=== PATIENT | female | born 1960 | race Caucasian/White ===

== ENCOUNTER → 2018-04-23 | Outpatient (CLI) | payer OTHER ==
--- NOTE | 2018-04-23 09:58 | PCVCIMAG ---
APPROVED REPORT Study performed: 04/23/2018 07:49:21 EXAM: Comprehensive 2D, Doppler, and color-flow Echocardiogram Patient Location: Echo lab Status: routine BSA: 1.93 HR: 68 bpmBP: 136/84 mmHg Rhythm: NSR Other Information Study Quality: Adequate Risk Factors: Cardiac Risk Factors: HTN Indications Dyspnea Palpitations PSVT 2D Dimensions IVSd: 10.46 (7-11mm) LVDd: 41.17 mm PWd: 9.94 (7-11mm)Ascending Ao: 31.97 (22-36mm) LVDs: 27.75 (25-40mm) Left Atrium: 35.57 (27-40mm) Aortic Root: 32.68 mm LV Single Plane 4CH: 55.18 % LV Single Plane 2CH: 59.98 % Biplane EF: 57.9 % Volumes Left Atrial Volume (Systole) Single Plane 4CH: 88.76 mLSingle Plane 2CH: 46.82 mL LA ESV Index: 36.00 mL/m2 Aortic Valve AoV Peak Yung.: 1.30 m/s AO Peak Gr.: 6.76 mmHgLVOT Max P.55 mmHg LVOT Max V: 1.07 m/s Mitral Valve E/A Ratio: 0.6 MV Decel. Time: 332.58 ms MV E Max Yung.: 0.49 m/s MV A Yung.: 0.83 m/s IVRT: 128.03 ms Pulmonary Valve PV Peak Yung.: 0.84 m/sPV Peak Gr.: 2.84 mmHg Pulmonary Vein P Vein S: 0.23 m/sP Vein A: 0.43 m/s P Vein D: 0.37 m/sP Vein A Dur.: 110.7 msec P Vein S/D Ratio: 0.62 Tricuspid Valve TR Peak Yung.: 2.12 m/s TR Peak Gr.: 17.92 mmHg Left Ventricle The left ventricle is normal size. There is normal LV segmental wall motion. There is normal left ventricular wall thickness. Left ventricular systolic function is normal. The left ventricular ejection fraction is within the normal range. LVEF is 55-60%. Grade I - abnormal relaxation pattern. Right Ventricle The right ventricle is normal size. The right ventricular systolic function is normal. Atria Left atrium is mildly dilated. The right atrium size is normal. Aortic Valve The aortic valve is normal in structure. No aortic regurgitation is present. There is no aortic valvular stenosis. Mitral Valve The mitral valve is normal in structure. There is no mitral valve regurgitation noted. No evidence of mitral valve stenosis. Tricuspid Valve The tricuspid valve is normal in structure. Trace tricuspid regurgitation with PAP of 25 mmHg. Pulmonic Valve The pulmonary valve is normal in structure. There is no pulmonic valvular regurgitation. Great Vessels The aortic root is normal in size. IVC is normal in size and collapses >50% with inspiration. Pericardium There is no pericardial effusion. There is no pleural effusion. <Conclusion> The left ventricle is normal size. There is normal left ventricular wall thickness. Left ventricular systolic function is normal. Grade I - abnormal relaxation pattern. The right ventricle is normal size. Left atrium is mildly dilated. The right atrium size is normal. The aortic valve is normal in structure. The mitral valve is normal in structure. Trace tricuspid regurgitation with PAP of 25 mmHg.
== END | disposition home or self-care (01) ==
LOC: PCVCIMAG 08:26
PROVIDERS: ATTEND Internal Medicine Cardiovascular Disease
DX: R00.2 Palpitations (principal); I47.1 Supraventricular tachycardia; R06.09 Other forms of dyspnea; I10 Essential (primary) hypertension
CPT/HCPCS: 93306

== ENCOUNTER → 2018-06-20 | Outpatient (CLI) | payer OTHER ==
--- NOTE | 2018-06-21 15:14 | PCVCIMAG ---
APPROVED REPORT Study performed: 06/20/2018 13:56:45 Exam: Stress Echocardiogram Indication: Palpitations , Dyspnea Patient Location: Echo lab Stress Nurse: Kassy Ross RN Room #: 2 Status: routine Ht: 5 ft 6 in HR: 88 bpm BP: 104/64 mmHg Rhythm: NSR Medical History Medical History: HTN, SVT, CVA Cardiac Risk Factors: HTN Previous Cardiac Procedures: none Pretest Chest Pain Characteristics: No chest pain Exercise History: Physically active Procedure The patient underwent an Exercise Stress Test using the Nadia Protocol. Blood pressure, heart rate, and EKG were monitored. An Echocardiogram was performed by diesel automotive technician in four stages in quad fashion. At peak stress, four selected images were obtained and placed side by side with resting images for comparison. Stress Test Details Stress Test: Exercise stress testing was performed using a Nadia protocol. HR Resting HR: 88 bpmMax Heart Rate (APMHR): 164 bpm Max HR Achieved: 171 bpmTarget HR (85% APMHR): 139 bpm % of APMHR: 104 Recovery HR: 108 bpm HR response to stress: Normal HR response to stress BP Resting BP: 104/64 mmHg Max BP: 160/74 mmHg Recovery BP: 132/72 mmHg BP response to stress: Normal blood pressure response to stress. ECG Resting ECG: Sinus Rhythm Stress ECG: Sinus Rhythm ST Change: Non-ischemic Arrhythmia: Rare PVcs Recovery ECG: Sinus Rhythm Recovery ST Change: Non-ischemic Recovery Arrhythmia: None Clinical Reason for Termination: Maximal effort Stress Symptoms: none Exercise duration: 10 min 14 sec Highest Stage Achieved: Stage 4: 4.2 mph at 16% grade. Exercise capacity: 13.4 METs Overall Exercise Capacity for Age: Good Angina Score: None No complications. Stress ECG Conclusion The patient exercised according to the NADIA protocol for 10:14 mins; achieving a work level of 13.4 METS. The resting heart rate of 91 bpm bruno to a maximum heart rate of 171 bpm. This value represent 104 % of the maximal, age-predicted heart rate. The resting blood pressure of 104/64 mmHg, bruno to a maximum blood pressure of 160/74 mmHg. The exercise test was stopped due to fatigue. Pre-Stress Echo The resting Echocardiogram showed normal left ventricular contractility with an estimated Ejection Fraction of about 55-60%. Normal wall motion in all segments on baseline images. Post-Stress Echo The stress Echocardiogram showed normal left ventricular contractility with an estimated Ejection Fraction of about 65-70%. Normal augmentation of wall motion in all segments on post stress images. Clinical No clinical or ECG evidence for ischemia. Conclusion Clinical Response: Non-ischemic Exercise Capacity: Above average Stress ECG Response: Non-ischemic Stress Echo Images: Non-ischemic No clinical, EKG or echocardiographic evidence for ischemia. No echocardiographic evidence for exercise induced ischemia. Normal stress echocardiogram with maximal exercise stress. <Conclusion> No clinical, EKG or echocardiographic evidence for ischemia. No echocardiographic evidence for exercise induced ischemia. Normal stress echocardiogram with maximal exercise stress.
== END | disposition home or self-care (01) ==
LOC: PCVCIMAG 14:47
PROVIDERS: ATTEND Internal Medicine Cardiovascular Disease
DX: R00.2 Palpitations (principal); R06.09 Other forms of dyspnea
CPT/HCPCS: 93325; 93351